=== PATIENT | female | born 1990 | race Caucasian/White ===

== ENCOUNTER 2017-11-16 13:49 | Emergency (ER) | payer OTHER ==
[2017-11-16 14:13] VITALS: BP 136/91
--- NOTE | 2017-11-16 15:26 | EDPHY ---
H & P Time Seen by Provider: 11/16/17 15:11 HPI/ROS: CHIEF COMPLAINT: Head injury at work yesterday HISTORY OF PRESENT ILLNESS: 27-year-old female generally healthy, no anticoagulant use, states that yesterday at approximately 8:00 p.m. 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 [place] dazed. No loss of consciousness. No amnesia. No alcohol or drug use. Today when she reported to work she felt high levels of anxiety, felt difficulty concentrating and came to the ER for evaluation. She is experiencing non thunderclap nonprogressive headache. She denies: Midline C- spine pain, peripheral paresthesia, weakness, numbness, gait instability, slurred speech, vomiting PRIMARY CARE PROVIDER: Worker's compensation REVIEW OF SYSTEMS: 10 systems reviewed and negative with the exception of the elements mentioned in the history of present illness PAST MEDICAL/SURGICAL HISTORY: no anticoagulant use, no relevant medical/ surgical history SOCIAL HISTORY: denies alcohol use at time of incident. Works at a local restaurant PHYSICAL EXAM 1) GENERAL: Well-developed, well-nourished, alert and oriented. Appears to be in no acute distress. Answering questions appropriately. 2) HEAD: Normocephalic, atraumatic. No hematoma no depression 3) HEENT: Pupils equal, round, reactive to light bilaterally. Negative Horners. Nasopharynx, oropharynx, clear. No deformity or angulation of nose. No septal hematoma. No rhinorrhea. No oral trauma. Ears bilaterally with normal tympanic membranes. No hemotympanum. No fluid or blood in the external auditory canal. No raccoon eyes. No Anderson sign. Teeth are normally aligned with no gross malocclusion, TMJ bilaterally nontender, facial bones nontender including the zygomatic arch, maxilla mandible. 4) NECK: No cervical collar is on. Posterior cervical spine is nontender, no stepoff, no effusion. Full range of motion which does not elicit any midline cervical spine pain, no posterior midline tenderness, no step-off. 5) LUNGS: Clear to auscultation bilaterally, no wheezes, no rhonchi, no retractions. No obvious signs of trauma. No chest wall pain. No flaring, no grunting. Moving symmetrically. No crepitus. 6) HEART: [Regular rate and rhythm, 7) ABDOMEN: No guarding, no rebound, no focal tenderness, no peritoneal signs, no signs of trauma, no ecchymosis 8) MUSCULOSKELETAL: Moving all extremities, no focal areas of tenderness, no obvious trauma. 9) BACK: No midline vertebral tenderness, no fluctuance, no step-off, no obvious trauma, no visual or palpable abnormality. 10) SKIN: No laceration. No abrasion 11) NEURO: Awake, alert, and oriented to person, place and time. Answers questions appropriately. There were no obvious focal neurologic abnormalities. No cerebellar dysfunction. Cranial nerves 2 through to 12 intact. Normal steady gait. Upper and lower extremities bilaterally with strength 5 / 5, reflexes 2+. DIFFERENTIAL DIAGNOSIS: Not necessarily in any particular order, my differential diagnosis includes, but is not limited to, concussion, skull fracture, intraparenchymal contusion, subarachnoid, subdural and epidural hematoma. The patient understands that this diagnosis is provisional and can never be 100% accurate. Smoking Status: Never smoked Constitutional: Initial Vital Signs Temperature (C) 36.6 C 11/16/17 14:10 Heart Rate 73 11/16/17 14:10 Respiratory Rate 18 11/16/17 14:10 Blood Pressure 136/91 H 11/16/17 14:10 O2 Sat (%) 98 11/16/17 14:10 O2 Delivery Mode Room Air Allergies/Adverse Reactions: No Known Allergies Allergy (Unverified 11/16/17 14:13) Home Medications: Medication Instructions Recorded Sertraline HCl 11/16/17 MDM/Departure - MDM ED Course/Re-evaluation: Patient has negative [place] head and C-spine decision-making tools. I think her symptoms are more than likely consistent with post concussive syndrome. We discussed the indications, risks, benefits of CT imaging. At this time I do not think that CT imaging is indicated. Nonetheless this was offered to the patient and she is in agreement she does not feel CT imaging is indicated. I recommend follow-up information provided Dr. Bailey Lundberg follow-up information as well as work comp follow-up information. She feels comfortable being discharged. Discharged with my usual and customary head injury precautions instructions. I saw this patient independently based on established practice protocols. Care of patient under supervision of secondary supervising physician Dr Garay . - Depart Disposition: Home, Routine, Self-Care Clinical Impression: Post concussive syndrome Head injury Qualifiers: Encounter type: initial encounter Qualified Code(s): S09.90XA - Unspecified injury of head, initial encounter Condition: Good Instructions: Concussion (ED) Additional Instructions: ALTHOUGH THERE IS NO EVIDENCE OF SERIOUS HEAD INJURY AT THIS TIME, DELAYED SIGNS CAN APPEAR 24 TO 48 HOURS AFTER INJURY. PLEASE RETURN TO THE EMERGENCY DEPARTMENT (ED) IMMEDIATELY IF YOU HAVE INCREASED HEADACHE, PERSISTENT HEADACHE , VOMITING, WEAKNESS, CONFUSION OR VISUAL PROBLEMS. WE RECOMMEND THAT YOU DO NOT RESUME CONTACT SPORTS OR ACTIVITIES THAT TAKE COORDINATION OR BALANCE SUCH SKIING OR RIDING A BICYCLE UNTIL CLEARED TO DO SO BY YOUR DOCTOR OR BY A NEUROLOGIST. Stand Alone Forms: Work Comp Follow Up Referrals: Bailey Lundberg MD [Medical Doctor] - 2-3 days, call for appt.
== END 2017-11-16 15:41 | disposition home or self-care (01) ==
DX: S09.90XA Unspecified injury of head, initial encounter (principal); W22.8XXA Striking against or struck by other objects, initial encounter; Y99.0 Civilian activity done for income or pay; Y92.511 Restaurant or cafe as the place of occurrence of the external cause; Y93.9 Activity, unspecified

== ENCOUNTER → 2017-12-23 | Outpatient (CLI) | payer BC | LOC: FIMAGING 09:12 | PROVIDERS: ATTEND Obstetrics & Gynecology Gynecology | DX: N63.20 Unspecified lump in the left breast, unspecified quadrant (principal) ==